=== PATIENT | male | born 1955 | race Caucasian/White ===

== ENCOUNTER 2018-02-27 13:53 | Emergency (ER) | payer MEDICAID, OTHER ==
[~2018-02-27] VITALS: Ht 180.3 cm; Wt 91.5 kg
[2018-02-27 13:54] VITALS: BP 129/81
[2018-02-27 14:29] LABS: MICROSCOPIC INDICATED
[2018-02-27 14:36] LABS: CULTURE INDICATED? NO
[2018-02-27 15:06] LABS: BASOPHILS # (AUTO) 0.05 x10^3/uL (0-0.1); BASOPHILS % (AUTO) 1 % (0-1); EOSINOPHILS # (AUTO) 0.76 x10^3/uL (0-0.4); EOSINOPHILS % (AUTO) 7 % (1-7); LYMPHOCYTES # (AUTO) 2.98 x10^3/uL (1-3.4); LYMPHOCYTES % (AUTO) 28 % (22-44); MD NO; MEAN CORPUSCULAR HEMOGLOBIN 30.2 pg (27.5-34.5); MEAN CORPUSCULAR HGB CONC 32.8 g/dL (33.2-36.2); MEAN CORPUSCULAR VOLUME 92.1 fL (81-97); MEAN PLATELET VOLUME 7.9 fL (7.4-10.4); MONOCYTES # (AUTO) 0.48 x10^3/uL (0.2-0.8); MONOCYTES % (AUTO) 5 % (2-9); NEUTROPHILS # (AUTO) 6.35 x10^3/uL (1.8-6.8); NEUTROPHILS % (AUTO) 60 % (42-75); PLATELET COUNT 218 x10^3/uL (130-400); RED BLOOD COUNT 4.93 x10^6/uL (4.38-5.82); RED CELL DISTRIBUTION WIDTH 14.1 % (9.4-14.8)
[2018-02-27] MEDS ORDERED: OXYcodone/APAP 5/325MG TABLET ONE (15:17)
[2018-02-27] MEDS ORDERED: ONDANSETRON ODT 4 MG ONE (15:17)
[2018-02-27 15:23] LABS: ALBUMIN 3.6 g/dL (3.4-5.0); ANION GAP 8 mmol/L (5-15); CHLORIDE 110 mmol/L (98-107); CREATININE 1.09 mg/dL (0.7-1.3)
[2018-02-27] MEDS ORDERED: ONDANSETRON ODT 4 MG PO ONE (15:30)
[2018-02-27] MEDS ORDERED: OXYcodone/APAP 5/325MG TABLET PO ONE (15:30)
== END 2018-02-27 15:57 | disposition home or self-care (01) ==
LOC: ED 15:55
DX: N20.1 Calculus of ureter (principal); I10 Essential (primary) hypertension
CPT/HCPCS: 36415; 74018; 80048; 81001; 82040; 85025; 99285; Q0162

== ENCOUNTER 2019-10-12 16:12 | Emergency (ER) | payer MEDICAID ==
[~2019-10-12] VITALS: Ht 160 cm; Wt 89.6 kg
[2019-10-12 16:22] VITALS: BP 163/112
[2019-10-12] MEDS ORDERED: CLON0.1T22 PO (16:41)
== END 2019-10-12 17:22 | disposition home or self-care (01) ==
LOC: ED 16:34
DX: S90.31XA Contusion of right foot, initial encounter (principal); I10 Essential (primary) hypertension; Z95.0 Presence of cardiac pacemaker; X50.1XXA Overexertion from prolonged static or awkward postures, initial encounter; Y93.K1 Activity, walking an animal; Y92.828 Other wilderness area as the place of occurrence of the external cause; Y99.8 Other external cause status
CPT/HCPCS: 99283

== ENCOUNTER 2020-02-01 16:48 | Emergency (ER) | payer MEDICAID ==
[~2020-02-01] VITALS: Ht 180.3 cm; Wt 94.3 kg
[~2020-02-01 16:48] MED LIST: CLON0.1T22 PO
[2020-02-01] MEDS ORDERED: HYDROcodone/APAP 5/325 TABLET PO ONE (17:08)
--- NOTE | 2020-02-01 17:24 | NUR ---
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
[2020-02-01] MEDS ORDERED: HYDROcodone/APAP 5/325 TABLET ONE (17:39)
--- NOTE | 2020-02-01 17:39 | NUR ---
Pt here for chronic right ankle pain. Reports he had surgery on it a while ago and it continues to hurt. Pt reports very tender and this occurs after use. Today he was walking on an uneven surface and it caused the pain.
--- NOTE | 2020-02-01 17:48 | NUR ---
BREAK RN: PT TALKING WITH DR WORLEY AT BEDSIDE. NO ACUTE DISTRESS NOTED. CALL LIGHT IN PLACE WILL CONTINUE TO MONITOR WHILE PRIMARY RN IS ON BREAK.
[2020-02-01 18:05] VITALS: BP 158/92
--- NOTE | 2020-02-01 18:20 | NUR ---
Patient/Caregiver given discharge instructions and they have confirmed that they understand the instructions. Patient ambulatory with steady gait.
--- NOTE | 2020-02-01 18:23 | NUR ---
PT HAS A RIDE HOME
== END 2020-02-01 18:22 | disposition home or self-care (01) ==
LOC: ED 17:50
DX: S86.011A Strain of right Achilles tendon, initial encounter (principal); I10 Essential (primary) hypertension; Z95.0 Presence of cardiac pacemaker; X58.XXXA Exposure to other specified factors, initial encounter; Y93.89 Activity, other specified; Y92.89 Other specified places as the place of occurrence of the external cause; Y99.8 Other external cause status
CPT/HCPCS: 99283